=== PATIENT | female | born 1980 | race Caucasian/White ===

== ENCOUNTER 2022-09-05 08:19 | Emergency (ER) | payer OTHER, SELFPAY ==
[2022-09-05 08:40] VITALS: BP 91/73; PULSE 91; RESP 20; TEMP 36.9; O2SAT 99
--- NOTE | 2022-09-05 09:15 | ED.GENADULT ---
HPI - General Adult General Chief complaint: Upper Respiratory Infection Stated complaint: ear ache Source: patient Mode of arrival: ambulatory Limitations: no limitations History of Present Illness HPI narrative: PATIENT PRESENTS FOR EVALUATION OF EAR COMPLAINTS FOR LAST 10 DAYS. SYMPTOMS INCLUDE BILATERAL EAR PAIN, MUFFLED HEARING, DRAINAGE FROM THE EARS. NO FEVER, CHILLS, NAUSEA, VOMITING, SORE THROAT, COUGH, SHORTNESS OF BREATH. SHE DOES HAVE A LITTLE BIT OF SINUS CONGESTION BUT ATTRIBUTES THAT TO ALLERGIES. SHE DOES WEAR A HARD HAT ON A DAILY BASIS. SHE PURCHASED SOME EAR DROPS THAT ARE A MIXTURE OF NATURAL OILS BUT HAS NOT NOTED A CONSIDERABLE IMPROVEMENT IN HER SYMPTOMS THEREAFTER. Related Data Allergies Allergy/AdvReac Type Severity Reaction Status Date / Time No Known Allergies Allergy Verified 09/05/22 08:48 Review of Systems Review of Systems: CONSTITUTIONAL: DENIES FEVER, CHILLS, OR SWEATS. EYES: DENIES VISUAL CHANGES, REDNESS, OR DISCHARGE. ENT: REPORTS SINUS CONGESTION, BILATERAL EAR PAIN, MUFFLED HEARING AND DRAINAGE FROM THE EARS. CARDIOVASCULAR: DENIES CHEST PAIN, PALPITATIONS, OR EDEMA. RESPIRATORY: DENIES COUGH OR DYSPNEA. GASTROINTESTINAL: DENIES ABDOMINAL PAIN, NAUSEA, VOMITING, OR DIARRHEA. GENITOURINARY: DENIES DYSURIA OR HEMATURIA. SKIN: DENIES RASH OR ITCHING. MUSCULOSKELETAL: DENIES BACK PAIN, JOINT PAIN, OR MYALGIA. NEUROLOGIC: DENIES HEADACHE, NUMBNESS, DIZZINESS, OR WEAKNESS. PSYCHIATRIC: DENIES ANXIETY OR DEPRESSION. PMFSH Past Medical History Medical History No pertinent past medical history Surgical History Surgical History History of delivery Family History Family History Mother Family history non-contributory Social History Social History Smoking status: Never smoker Substance use: never Gender identity (if verbalized by the patient): Female Sexual Orientation (if Verbalized by the Patient): Straight or Heterosexual Spiritual care concerns: No Exam Narrative: GENERAL: Well-appearing, well-nourished, and in no acute distress. HEAD: Normocephalic, atraumatic. EYES: PERRLA and EOMI. ENT: Nares clear, no rhinorrhea or epistaxis. Mucous membranes moist. Oropharynx without tonsillar hypertrophy exudate or other lesions. Visible portion of bilateral TMs pearly lundy. I cannot fully visualize the tympanic membranes due to nature of anatomical structure. There are effusions noted bilaterally with some mild erythema to the bilateral TMs. Bilateral ear canals are erythematous. NECK: Supple. No adenopathy or masses. No carotid bruits or JVD CHEST: Clear to auscultation. No respiratory distress. No wheezes rales or rhonchi HEART: Regular rate and rhythm. No murmur heard. Normal peripheral pulses. ABDOMEN: Soft, nontender, nondistended, normal active bowel sounds. EXTREMITIES: Normal range of motion. No edema. SKIN: Warm, dry, no rash. NEURO: No focal deficits. Alert and oriented x3. PSYCH: Normal mood and affect. Course Course Emergency Course: This is a 41-year-old female who presented for evaluation of bilateral ear pain and drainage. Verbal report is consistent with otitis media with rupture of tympanic membranes. Based on anatomical structure can only visualize portion of her TMs which appear intact. Will proceed with oral antibiotics and otic as she has erythema noted to ear canals. Follow up with primary. Go to ER for worsening symptoms. Pt in agreement with plan of care. Level of Care: Express Care Visit Vital Signs Vital signs: Vital Signs Temperature 36.9 C 09/05/22 08:40 Pulse Rate 91 09/05/22 08:40 Respiratory Rate 20 09/05/22 08:40 Blood Pressure 91/73 L 09/05/22 08:40 Pulse Oximetry 99 09/05
== END 2022-09-05 09:19 | disposition home or self-care (01) ==
PROVIDERS: Emergency Provider Nurse Practitioner; PCP Family Medicine
DX: H66.93 Otitis media, unspecified, bilateral (principal)
CPT/HCPCS: 99213; G0463